=== PATIENT | male | born 1965 | race Two or more races ===

== ENCOUNTER 2024-08-02 13:42 | Emergency (ER) | payer OTHER ==
[~2024-08-02] VITALS: Ht 177.8 cm; Wt 71.7 kg
[2024-08-02] MEDS ORDERED: CELEBREX100 MG PO (17:25)
[2024-08-02] MEDS ORDERED: KETOROLAC TROMETHAMINE 60 MG VIAL IM ONE ×2 (17:34→17:45)
[2024-08-02] MEDS ORDERED: DEXAMETHASONE SODIUM PHOSPHATE 4 MG/ML VIAL ONE (17:34)
[2024-08-02] MEDS ORDERED: DEXAMETHASONE SODIUM PHOSPHATE 4 MG/ML VIAL IM ONE (17:45)
== END 2024-08-02 18:08 | disposition home or self-care (01) ==
LOC: ER 13:42
DX: M17.11 Unilateral primary osteoarthritis, right knee (principal)